=== PATIENT | female | born 2000 | race Caucasian/White ===

== ENCOUNTER 2021-07-05 09:05 | Emergency (ER) | payer MEDICAID ==
[~2021-07-05] VITALS: Ht 154.9 cm; Wt 68.0 kg
[2021-07-05 09:05] VITALS: BP_SYST 121
--- NOTE | 2021-07-05 09:05 | NUR ---
BROUGHT BACK TO BED #7 AND TRIAGED. REPORT GIVEN TO DAVID
--- NOTE | 2021-07-05 09:09 | NUR ---
ER at bedside examining patient.
--- NOTE | 2021-07-05 09:10 | NUR ---
PT CAME IN FROM HOME C/O URINARY FREQUNCY AND BURNING AND LOWER BACK PAIN X 1 WEEK. STATES SHE IS 8 WEEKS PRESENT. PT IS AMBULATORY, AAOX4, V/S STABLE
--- NOTE | 2021-07-05 09:15 | NUR ---
PT AMBULATES TO BATHROOM TO VOID WITH STEADY GAIT
[2021-07-05 09:42] LABS: BASOPHILS % (AUTO) 0.1 % (0.0-2.0); EOSINOPHILS % (AUTO) 0.4 % (0.0-4.0); HEMATOCRIT 40.3 % (36-48); HEMOGLOBIN 13.6 g/dL (12.0-16.0); LYMPHOCYTES # (AUTO) 1.4 K/uL (1.0-5.5); LYMPHOCYTES % (AUTO) 13.4 % (20.5-51.5); MEAN CORPUSCULAR HEMOGLOBIN 28 pg (27-31); MEAN CORPUSCULAR HGB CONC 34 % (32-36); MEAN CORPUSCULAR VOLUME 84 fL (79.0-98.0); MONOCYTES # (AUTO) 0.5 K/uL (0.0-1.0); NEUTROPHILS # (AUTO) 8.4 K/uL (1.8-7.7); NEUTROPHILS % (AUTO) 81.1 % (40.0-70.0); PLATELET COUNT (AUTO) 292 K/uL (130-430); RED BLOOD CELL COUNT(AUTO) 4.79 MIL/uL (4.2-6.2); RED CELL DISTRIBUTION WIDTH 14.3 % (9.0-15.0); WHITE BLOOD COUNT (AUTO) 10.3 K/uL (4.5-11.0)
[2021-07-05 09:44] LABS: BILIRUBIN,URINE NEGATIVE (NEGATIVE); BLOOD, URINE 1+ (NEGATIVE); CLARITY/URINE SL CLOUDY (CLEAR); GLUCOSE,URINE NEGATIVE (NEGATIVE); KETONES,URINE TRACE (NEGATIVE); LEUKOCYTE ESTERASE ,URINE 1+ (NEGATIVE); NITRITE, URINE NEGATIVE (NEGATIVE); PROTEIN URINE 1+ (NEGATIVE); UROBILINOGEN,URINE 0.2 (0.2-1.0)
[2021-07-05 09:54] LABS: CALCIUM 8.7 mg/dL (8.4-11.0); CREATININE 0.56 mg/dL (0.55-1.30)
[2021-07-05 10:12] LABS: COLOR,URINE YELLOW (YELLOW)
[2021-07-05 10:20] LABS: ALBUMIN 3.8 g/dL (3.4-4.8); TOTAL BILIRUBIN 0.4 mg/dL (0.0-1.0)
--- NOTE | 2021-07-05 11:50 | NUR ---
Patient transported to radiology via AMBULATION, accompanied by STAFF.
[2021-07-05 11:54] LABS: BACTERIA,URINE MODERATE /HPF (None Seen)
--- NOTE | 2021-07-05 12:05 | NUR ---
Returned from radiology, back to [facility].
--- NOTE | 2021-07-05 13:00 | NUR ---
Patient resting quietly. No acute distress noted. Vital signs within normal range.
[2021-07-05] MEDS ORDERED: CEPH-548 PO (14:21)
[2021-07-05 14:42] VITALS: BP_SYST 121
--- NOTE | 2021-07-05 14:43 | NUR ---
Patient given written and verbal discharge instructions and verbalizes understanding. ER MD discussed with patient the results and treatment provided. Patient in stable condition. ID arm band removed. Rx of CEPHALEXIN given. Patient educated on pain management and to follow up with PMD. Pain Scale 0/10. Opportunity for questions provided and answered. Medication side effect fact sheet provided.
== END 2021-07-05 14:43 | disposition home or self-care (01) ==
LOC: SED 09:05
DX: O26.891 Other specified pregnancy related conditions, first trimester (principal); R82.71 Bacteriuria; R10.9 Unspecified abdominal pain; Z3A.08 8 weeks gestation of pregnancy; Z79.899 Other long term (current) drug therapy
CPT/HCPCS: 36415; 76801; 76817; 80053; 81000; 84702; 85025; 86886; 86900; 86901; 87086; 99284